=== PATIENT | male | born 1985 | race Caucasian/White ===

== ENCOUNTER 2017-11-06 17:44 | Emergency (ER) | payer OTHER ==
[2017-11-06 18:21] VITALS: BP 119/86
--- NOTE | 2017-11-06 18:31 | UC ---
Throat Pain/Nasal Philip HPI - HPI Summary HPI Summary: 32 y/o male presents to the urgent care c/o sore throat since this afternoon. pain w/ swallowing is 4/10 associated w/ mild nasal congestion w/ clear nasal discharge, VARGAS and mild body aches. Pt took Tylenol PO to alleviate symptoms. Pt denies fever, SOB, chest pain, abdominal pain, NV/D. Pt is concerned w/ strep and flu since he 2 small children at home. - History of Current Complaint Chief Complaint: UCRespiratory Stated Complaint: SORE THROAT,FEVER Time Seen by Provider: 11/06/17 18:23 Hx Obtained From: Patient Onset/Duration: Gradual Onset, Lasting Days - 1 day, Still Present Severity: Moderate Pain Intensity: 4 Pain Scale Used: 0-10 Numeric Cough: Nonproductive Associated Signs & Symptoms: Positive: Dysphagia, Sinus Discomfort, Nasal Discharge - Epiglottits Risk Factors Epiglottis Risk Factors: Negative - Allergies/Home Medications Allergies/Adverse Reactions: Allergies Allergy/AdvReac Type Severity Reaction Status Date / Time No Known Allergies Allergy Verified 11/06/17 18:21 PMH/Surg Hx/FS Hx/Imm Hx Previously Healthy: Yes Respiratory History: Asthma - Surgical History Surgical History: None - Family History Known Family History: Positive: None - Pt denies PMHX - Social History Occupation: Employed Full-time Lives: With Family Alcohol Use: None Substance Use Type: None Smoking Status (MU): Never Smoked Tobacco Review of Systems Constitutional: Chills Skin: Negative Eyes: Negative ENT: Sore Throat, Nasal Discharge, Sinus Congestion, Sinus Pain/Tenderness Respiratory: Cough - dry Cardiovascular: Negative Gastrointestinal: Negative Genitourinary: Negative Motor: Negative Neurovascular: Negative Musculoskeletal: Negative Neurological: Headache Psychological: Negative Is Patient Immunocompromised?: No All Other Systems Reviewed And Are Negative: Yes Physical Exam - Summary Physical Exam Summary: Vital Signs Reviewed: Yes General: well developed, well nourished male sitting in the examining table w/ o any apparent distress Eyes: Positive: Conjunctiva Clear - PERRLA, EOMI, fundi grossly normal ENT: Positive: Normal ENT inspection, Hearing grossly normal, Pharynx mild erythema, no exudate, Nasal congestion - edematous and erythematous nasal mucosa , Nasal drainage - yellowish drainage, TMs normal. Negative: Tonsillar swelling , Tonsillar exudate Neck: Positive: Supple, Nontender, No Lymphadenopathy Respiratory: no orthopnea or dyspnea. Able to speak in full sentences, no retractions or accessory muscle use, no tripod position, stridor, or head bobbing. CTA bilaterally, no wheezing, no rhonchi, no rales, no crackles. Cardiovascular: Positive: RRR, No Murmur, Pulses Normal, Brisk Capillary Refill Abdomen Description: Positive: Nontender, No Organomegaly, Soft. Negative: CVA Tenderness (R), CVA Tenderness (L) Bowel Sounds: Positive: Present Musculoskeletal Exam: Normal Musculoskeletal: Positive: Strength Intact, ROM Intact, No Edema Neurological Exam: Normal Psychological Exam: Normal Skin Exam: Normal Triage Information Reviewed: Yes Vital Signs: Initial Vital Signs Temp 98.9 F 11/06/17 18:19 Pulse 104 11/06/17 18:19 Resp 12 11/06/17 18:19 BP 119/86 11/06/17 18:19 Pulse Ox 97 11/06/17 18:19 Throat Pain/Nasal Course/Dx - Course Course Of Treatment: 32 y/o male presents to the urgent care c/o sore throat since this afternoon. pain w/ swallowing is 4/10 associated w/ mild nasal congestion w/ clear nasal discharge, VARGAS and mild body aches. Pt took Tylenol PO to alleviate symptoms. Pt denies fever, SOB, chest pain, abdominal pain, NV/ D. Pt is concerned w/ strep and flu since he 2 small children at home. Hx obtained. Pt w/ URI on examination. Rapid strep ordered: negative. Influenza A& B ordered: result: negative. Pt Rx ibuprofen PO to alleviates symptoms. Advised on hand washing. Pt advised to rest, increase fluid intake, eat well and avoid strenuous exercise. If symptoms do not improve or worsen advised to return to the urgent care or f/u with her PCP for further evaluation and treatment. Pt understood and agreed with plan of care. - Differential Dx/Diagnosis Differential Diagnosis/HQI/PQRI: Laryngitis, Mononucleosis, Pharyngitis, Tonsillitis, URI Provider Diagnoses: 1- Upper respiratory infection Discharge - Sign-Out/Discharge Documenting (check all that apply): Discharge/Admit/Transfer - D/C home - Discharge Plan Condition: Stable Disposition: HOME Prescriptions: Ibuprofen TAB* [Motrin TAB* 600 MG] 600 mg PO Q6H PRN #20 tab PRN Reason: Sore Throat Patient Education Materials: Upper Respiratory Infection (ED) Referrals: No Primary Care Phys,NOPCP [Primary Care Provider] - Additional Instructions: 1-Please take ibuprofen PO q6-8hrs prn as instructed after meals to alleviate pain and swelling. Increase fluid intake, eat well, rest and avoid strenuous exercise 2-If symptoms do not improve or worsen please return to the urgent care or f/u with your PCP for further evaluation and treatment. - Billing Disposition and Condition Condition: STABLE Disposition: HOME
== END 2017-11-06 19:30 | disposition home or self-care (01) ==
LOC: UCEAST 17:44
DX: J06.9 Acute upper respiratory infection, unspecified (principal); J45.909 Unspecified asthma, uncomplicated
CPT/HCPCS: 87502; 87651; 99202; G0463

== ENCOUNTER 2018-07-13 09:01 | Emergency (ER) | payer OTHER ==
[2018-07-13 09:10] VITALS: BP 114/77
--- NOTE | 2018-07-13 09:41 | UC ---
Throat Pain/Nasal Philip HPI - HPI Summary HPI Summary: 33 yo male presents with 2.5 weeks of cough with intermittent production of green sputum. Today felt feverish, but did not take his temperature. Has been taking dayquill with no relief. No smoking hx. Denies sore throat, SOB, chest pain, n/v. - History of Current Complaint Chief Complaint: UCGeneralIllness Stated Complaint: COUGH,FEVER Time Seen by Provider: 07/13/18 09:41 Hx Obtained From: Patient Onset/Duration: Sudden Onset Severity: Mild Pain Intensity: 2 Pain Scale Used: 0-10 Numeric - Allergies/Home Medications Allergies/Adverse Reactions: Allergies Allergy/AdvReac Type Severity Reaction Status Date / Time No Known Allergies Allergy Verified 07/13/18 09:10 PMH/Surg Hx/FS Hx/Imm Hx - Additional Past Medical History Additional PMH: None - Surgical History Surgical History: None - Family History Known Family History: Positive: None - Social History Occupation: Employed Full-time Lives: With Family Alcohol Use: None Substance Use Type: None Smoking Status (MU): Never Smoked Tobacco Review of Systems All Other Systems Reviewed And Are Negative: Yes Constitutional: Positive: Fever Skin: Positive: Negative Eyes: Positive: Negative ENT: Positive: Negative Respiratory: Positive: Cough Cardiovascular: Positive: Negative Gastrointestinal: Positive: Negative Neurovascular: Positive: Negative Neurological: Positive: Negative Psychological: Positive: Negative Physical Exam - Summary Physical Exam Summary: GENERAL: NAD. WDWN. No pain distress. SKIN: No rashes, sores, lesions, or open wounds. HEENT: Head: AT/NC Eyes: Conjunctiva clear without inflammation or discharge. Ears: Hearing grossly normal. TMs intact, no bulging, erythema, or edema. Nose: Nasal mucosa pink and moist. NTTP maxillary and frontal sinus. Throat: Posterior oropharynx without exudates, erythema, or tonsillar enlargement. Uvula midline. NECK: Supple. Nontender. No lymphadenopathy. CHEST: Mild wheezing throughout. No r/r. No accessory muscle use. Breathing comfortably and in no distress. CV: RRR. Without m/r/g. Pulses intact. Cap refill <2seconds NEURO: Alert. PSYCH: Age appropriate behavior. Triage Information Reviewed: Yes Vital Signs: Initial Vital Signs Temp 98.4 F 07/13/18 09:08 Pulse 91 01/08/19 09:08 Resp 17 07/13/18 09:08 BP 114/77 07/13/18 09:08 Pulse Ox 100 07/13/18 09:08 Vital Signs Reviewed: Yes Throat Pain/Nasal Course/Dx - Course Course Of Treatment: CXR: IMPRESSION: NO EVIDENCE FOR ACTIVE CARDIOPULMONARY DISEASE. Given length of symptoms will treat with anbx today. - Differential Dx/Diagnosis Provider Diagnosis: Bronchitis Discharge - Sign-Out/Discharge Documenting (check all that apply): Patient Departure All imaging exams completed and their final reports reviewed: Yes - Discharge Plan Condition: Stable Disposition: HOME Prescriptions: Azithromycin TAB* [Zithromax TAB (Z-KWADWO) 250 mg #6 tabs] 2 tab PO .TODAY, THEN 1 DAILY #1 kwadwo Patient Education Materials: Acute Bronchitis (ED) Referrals: No Primary Care Phys,NOPCP [Primary Care Provider] - Additional Instructions: If you develop a fever, shortness of breath, chest pain, new or worsening symptoms - please call your PCP or go to the ED. - Billing Disposition and Condition Condition: STABLE Disposition: Home
== END 2018-07-13 10:41 | disposition home or self-care (01) ==
LOC: UCEAST 09:01
DX: J40 Bronchitis, not specified as acute or chronic (principal)
CPT/HCPCS: 71046; 99212; G0463

== ENCOUNTER 2019-06-04 11:14 | Emergency (ER) | payer OTHER, BC ==
[2019-06-04 12:04] VITALS: BP 120/77
--- NOTE | 2019-06-04 12:40 | UC ---
Throat Pain/Nasal Philip HPI - HPI Summary HPI Summary: Patient is a 34yo male presenting with "cold symptoms x5 days." Patient notes mild sore throat and nasal congestion at first which progressed to worsening sore throat, sinus tenderness, and sinus headache x1 day. Denies ear pain. Denies cough. Denies SOB and wheezing. Denies fever and chills. Denies n/v. States he was taking nyquil and dayquil but stopped when symptoms worsened. - History of Current Complaint Chief Complaint: UCRespiratory Stated Complaint: RESP COMPLAINT Hx Obtained From: Patient Onset/Duration: Gradual Onset, Lasting Days Severity: Moderate Pain Intensity: 5 Pain Scale Used: 0-10 Numeric - Allergies/Home Medications Allergies/Adverse Reactions: Allergies Allergy/AdvReac Type Severity Reaction Status Date / Time No Known Allergies Allergy Verified 06/04/19 12:04 PMH/Surg Hx/FS Hx/Imm Hx Previously Healthy: Yes - Surgical History Surgical History: Yes Surgery Procedure, Year, and Place: Right inguinal hernia repair May 2018 - Family History Known Family History: Positive: None, Hypertension Negative: Cardiac Disease, Respiratory Disease - Social History Lives: With Family Alcohol Use: None Substance Use Type: None Smoking Status (MU): Never Smoked Tobacco - Immunization History Most Recent Tetanus Shot: 2015 Review of Systems All Other Systems Reviewed And Are Negative: Yes Constitutional: Positive: Negative. Negative: Fever, Chills ENT: Positive: Sore Throat, Sinus Congestion, Sinus Pain/Tenderness. Negative: Ear Ache, Nasal Discharge Respiratory: Positive: Negative. Negative: Shortness Of Breath, Cough Cardiovascular: Positive: Negative Gastrointestinal: Positive: Negative. Negative: Vomiting, Nausea Musculoskeletal: Positive: Negative Neurological: Positive: Headache - sinus VARGAS Physical Exam Triage Information Reviewed: Yes Appearance: Well-Appearing, No Pain Distress, Well-Nourished Vital Signs: Initial Vital Signs Temp 98.7 F 06/04/19 12:01 Pulse 102 06/04/19 12:01 Resp 16 06/04/19 12:01 BP 120/77 06/04/19 12:01 Pulse Ox 100 06/04/19 12:01 Vital Signs Reviewed: Yes Eyes: Positive: Conjunctiva Clear ENT: Positive: Hearing grossly normal, Pharyngeal erythema, Nasal congestion, TMs normal, Sinus tenderness - maxillary, Uvula midline. Negative: Nasal drainage, Tonsillar swelling, Tonsillar exudate Neck exam: Normal Neck: Positive: Supple, No Lymphadenopathy, Tenderness @ - tonsillar nodes Respiratory Exam: Normal Respiratory: Positive: Lungs clear, Normal breath sounds, No respiratory distress Cardiovascular Exam: Normal Cardiovascular: Positive: RRR Neurological: Positive: Alert Psychological: Positive: Age Appropriate Behavior Throat Pain/Nasal Course/Dx - Course Course Of Treatment: Rapid strep test negative. I treated with Augmentin for bacterial rhinosinusitis. Instructed to continue with symptomatic treatment and follow up with PCP or [facility] if symptoms do not resolve in 7 days. Patient voiced understanding and agreed with treatment plan. - Differential Dx/Diagnosis Provider Diagnosis: Acute rhinosinusitis, Pharyngitis Discharge ED - Sign-Out/Discharge Documenting (check all that apply): Patient Departure All imaging exams completed and their final reports reviewed: No Studies - Discharge Plan Condition: Stable Disposition: HOME Prescriptions: Amoxicillin/Clavulanate TAB* [Augmentin TAB 875*] 875 mg PO BID #14 tab Patient Education Materials: Rhinosinusitis (ED), Pharyngitis (ED) Referrals: [facility] [Outside] - If Needed [facility] [Outside] - If Needed Additional Instructions: As discussed, take Augmentin for the treatment of your bacterial sinusitis. You may use nasal saline spray or Flonase over the counter for symptomatic relief. Throat lozenges, tea with honey, and over the counter throat sprays may help relieve sore throat. You may take ibuprofen or tylenol as directed for pain relief. Get plenty of rest and fluids. Follow up with your primary care doctor or one of the referrals listed below if your symptoms worsen or do not resolve within 7 days. - Billing Disposition and Condition Condition: STABLE Disposition: Home
== END 2019-06-04 13:28 | disposition home or self-care (01) ==
LOC: UCEAST 11:14
DX: J02.9 Acute pharyngitis, unspecified (principal); J01.90 Acute sinusitis, unspecified
CPT/HCPCS: 87651; 99212; G0463